=== PATIENT | female | born 1990 | race Caucasian/White ===

== ENCOUNTER 2016-06-20 13:47 | Emergency (ER) | payer SELFPAY ==
[2016-06-20 13:55] VITALS: BP 126/96
== END 2016-06-20 16:02 | disposition home or self-care (01) ==
LOC: ED 13:47
DX: O26.893 Other specified pregnancy related conditions, third trimester (principal); S91.332A Puncture wound without foreign body, left foot, initial encounter; W45.8XXA Other foreign body or object entering through skin, initial encounter; Z3A.20 20 weeks gestation of pregnancy; Y93.89 Activity, other specified; Y99.8 Other external cause status; Y92.89 Other specified places as the place of occurrence of the external cause